=== PATIENT | female | born 1990 | race American Indian/Alaskan Native ===

== ENCOUNTER 2018-02-16 02:21 | Emergency (ER) | payer OTHER ==
[2018-02-16] MEDS ORDERED: Tetanus/Diphtheria Toxoids 0.5 ml Syringe IM ONE (02:48)
[2018-02-16 03:09] LABS: BASO # 0.1 K/uL (0.0-0.2); BASO % 0.7 % (0.0-2.0); EOS # 0.2 K/uL (0.0-0.7); EOS % 2.3 % (0.0-4.0); HEMOGLOBIN 12.8 g/dL (11.0-16.0); LYMPH # 2.5 K/uL (1.0-4.3); LYMPH % 34.3 % (20.0-40.0); MEAN CELL VOLUME 98.6 fL (81.0-99.0); MEAN CORPUSCULAR HEMOGLOBIN 34.6 pg (27.0-31.0); MEAN CORPUSCULAR HGB CONC 35.1 g/dL (33.0-37.0); MEAN PLATELET VOLUME 7.6 fL (7.2-11.7); MONO # 0.4 K/uL (0.0-0.8); NEUT # 4.3 K/uL (1.8-7.0); NEUT % 57.7 % (50.0-75.0); RBC 3.69 Mil/uL (3.80-5.20); RED CELL DISTRIBUTION WIDTH 12.7 % (11.5-14.5); WHITE BLOOD COUNT 7.4 K/uL (4.8-10.8)
[2018-02-16 03:21] LABS: ALB/GLOB RATIO 1.4 (1.0-2.1)
[2018-02-16 03:22] LABS: ALBUMIN 4.6 g/dL (3.5-5.0); ALT/SGPT 23 U/L (9-52); AST/SGOT 23 U/L (14-36); BLOOD UREA NITROGEN 7 mg/dL (7-17); CALCIUM 9.2 mg/dl (8.6-10.4); GFR AFRICAN-AMERICAN > 60; GFR NON-AFRICAN AMERICAN > 60
[2018-02-16] MEDS ORDERED: Iodixanol 320 MG/ML 100 ML BOTTLE IV ONE (03:48)
[2018-02-16] MEDS ORDERED: Sodium Chloride 0.9% 1,000 ML IV ONE (04:08)
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
[2018-02-16] MEDS ORDERED: Sodium Chloride 0.9% 1,000 ML ONE (04:12)
[2018-02-16] MEDS ORDERED: Lidocaine 2% MPF (5 ml) Inj ONE (05:23)
[2018-02-16 06:30] VITALS: BP 122/76; PULSE 80; RESP 20; TEMP 98.2; O2SAT 98
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
== END 2018-02-16 06:28 | disposition home or self-care (01) ==
LOC: C.ER 02:21
DX: S31.114A Laceration without foreign body of abdominal wall, left lower quadrant without penetration into peritoneal cavity, initial encounter (principal); X99.9XXA Assault by unspecified sharp object, initial encounter; Z23 Encounter for immunization
CPT/HCPCS: 12002; 74177; 80053; 85025; 90471; 90714; 96374; 99285; J1885; J7030; Q9967